=== PATIENT | female | born 1940 | race Caucasian/White ===

== ENCOUNTER → 2018-06-18 | Outpatient (CLI) | payer MEDICARE ==
--- NOTE | 2018-06-18 12:41 | RAD ---
EXAM: Head CT without contrast. HISTORY: Cognitive decline. TECHNIQUE: Computed tomographic images of the head were obtained without contrast. *One or more of the following individualized dose reduction techniques were utilized for this examination: 1. Automated exposure control. 2. Adjustment of the mA and/or kV according to patient size. 3. Use of iterative reconstruction technique. COMPARISON: None. FINDINGS: There is no acute or subacute extra-axial or intraparenchymal hemorrhage. There is no mass effect or midline shift. There is no hydrocephalus. There are areas of decreased attenuation within the cerebral white matter, nonspecific and likely related to chronic small vessel disease. There is a tiny focus of hyperdensity within the left frontal lobe likely due to a tiny chronic infarct or neuroglial cyst. The visualized portions of the orbits, paranasal sinuses and mastoid air cells are unremarkable. No suspicious calvarial lesion is seen. IMPRESSION: No acute intracranial findings. Electronically signed by: Ainsley Romero MD (06/18/2018 12:38 PM) [id number]
== END | disposition home or self-care (01) ==
LOC: CT 11:07
PROVIDERS: ATTEND Family Medicine
DX: R41.81 Age-related cognitive decline (principal)
CPT/HCPCS: 70450

== ENCOUNTER → 2018-10-28 | Outpatient (CLI) | payer MEDICARE, BC ==
[~2018-10-28] MED LIST: IOHEXOL 240 MG/ML 50ML VIAL. ONE; IOHEXOL 240 MG/ML 50ML VIAL. PO ONE; IOHEXOL 300 MG/ML 75 ML VIAL. IV ONE
--- NOTE | 2018-10-28 13:52 | RAD ---
CT ABD PELV W/ORAL IV CONTRAST History: Right lower quadrant pain. History of cholecystectomy appendectomy and breast cancer. Technique: After the administration of oral and intravenous contrast, CT imaging was performed of the abdomen and pelvis. Multiplanar images are reviewed. Contrast: 75 mL Omnipaque 300 IV contrast. Exposure: One or more of the following individualized dose reduction techniques were utilized for this examination: 1. Automated exposure control 2. Adjustment of the mA and/or kV according to patient size 3. Use of iterative reconstruction technique. Comparison: None Findings: Lower chest: No consolidation or pleural effusion. Abdomen and pelvis: The liver, spleen, adrenal glands and pancreas are unremarkable. Prior cholecystectomy. Minimal intrahepatic biliary ductal dilatation likely due to postcholecystectomy state. Right renal cysts. Mild left hydronephrosis with urothelial thickening. Mild right pelvocaliectasis and prominent ureter with urothelial thickening. No obstructing urolithiasis. Contrast opacifies to the level of the transverse colon. Colonic diverticulosis. No evidence of bowel obstruction. Appendix not well identified. No inflammatory changes to suggest acute appendicitis. No pathologic lymphadenopathy. No ascites. Prior sternotomy. Otherwise, the pelvic contents are unremarkable. Bones: No pathologic osseous lesions. Mild left hip degenerative changes. Multilevel lumbar spondylosis. Grade 1 anterolisthesis L4 on L5. Impression: 1. Mild bilateral hydronephrosis with urothelial thickening, may relate to infectious or inflammatory process. No obstructing urolithiasis. 2. Multilevel lumbar spondylosis with grade 1 anterolisthesis L4 on L5 and canal narrowing. Electronically signed by: Sonny Asencio DO (10/28/2018 1:49 PM) [id number]
== END | disposition home or self-care (01) ==
LOC: CT 08:54
PROVIDERS: ATTEND Family Medicine
DX: K57.30 Diverticulosis of large intestine without perforation or abscess without bleeding (principal); N13.30 Unspecified hydronephrosis; N28.1 Cyst of kidney, acquired; K83.8 Other specified diseases of biliary tract; M47.816 Spondylosis without myelopathy or radiculopathy, lumbar region; Z90.49 Acquired absence of other specified parts of digestive tract; Z85.3 Personal history of malignant neoplasm of breast
CPT/HCPCS: 74177; Q9966; Q9967

== ENCOUNTER → 2020-11-15 | Outpatient (CLI) | payer MEDICARE, BC ==
--- NOTE | 2020-11-15 11:50 | RAD ---
EXAM: Right wrist, 3 views. HISTORY: Pain. COMPARISON: None. FINDINGS: 3 views of the right wrist are obtained. There is no acute fracture, dislocation or subluxa tion. There is no radiodense foreign body. IMPRESSION: No acute osseous finding. Electronically signed by: Ainsley Romero MD (11/15/2020 11:48 AM) [id number]
== END ==
LOC: RAD 11:00
PROVIDERS: ATTEND Family Medicine
DX: M25.531 Pain in right wrist (principal)
CPT/HCPCS: 73110